=== PATIENT | female | born 1945 | race Caucasian/White ===

== ENCOUNTER 2023-11-08 09:41 | Emergency (ER) | payer OTHER ==
[~2023-11-08] VITALS: Ht 152.4 cm; Wt 108.9 kg
[2023-11-08] MEDS ORDERED: DIOVAN40 MG PO (10:00)
[2023-11-08] MEDS ORDERED: ADULT LOW DOSE81 M1 PO (10:00)
[2023-11-08] MEDS ORDERED: ATORVASTATIN CA10 MG PO (10:00)
[2023-11-08] MEDS ORDERED: HORIZANT300 MG PO (10:01)
[2023-11-08] MEDS ORDERED: CLINDAMYCIN PHOSPHATE 150 MG/ML (300mg) IM STA (10:19)
[2023-11-08] MEDS ORDERED: KETOROLAC TROMETHAMINE 30 MG VIAL IM STA (10:19)
== END 2023-11-08 10:34 | disposition home or self-care (01) ==
LOC: ER 09:41
DX: K05.10 Chronic gingivitis, plaque induced (principal)
CPT/HCPCS: 96372; 99282; J1885; J3490